=== PATIENT | male | born 2000 | race Caucasian/White ===

== ENCOUNTER 2024-03-18 20:16 | Emergency (ER) | payer SELFPAY | END 2024-03-18 20:50 | disposition home or self-care (01) | LOC: NAV ERS 20:16 | DX: S60.413A Abrasion of left middle finger, initial encounter (principal); S60.415A Abrasion of left ring finger, initial encounter; F90.9 Attention-deficit hyperactivity disorder, unspecified type; F17.290 Nicotine dependence, other tobacco product, uncomplicated; Z79.899 Other long term (current) drug therapy; X58.XXXA Exposure to other specified factors, initial encounter | CPT/HCPCS: 99283 ==